=== PATIENT | male | born 1975 | race Caucasian/White ===

== ENCOUNTER → 2020-07-30 08:15 | Outpatient (CLI) | payer OTHER, SELFPAY ==
[2020-07-31 13:17] LABS: COVID19 Sendout Not Detected (Not Detect)
== END ==
PROVIDERS: Visit Provider Nurse Practitioner
DX: Z11.59 Encounter for screening for other viral diseases (principal)
CPT/HCPCS: 87635

== ENCOUNTER 2020-11-07 15:04 | Emergency (ER) | payer OTHER, SELFPAY ==
[2020-11-07 15:05] VITALS: BP 140/94; PULSE 77; RESP 14; TEMP 36.9; O2SAT 98; BMI 27.3
[2020-11-07 15:24] LABS: Add Manual Diff / Slide Review NO; Basophils Absolute Auto 100 /uL (0-100); Basophils Percent Auto 0.6 % (0-2); Eosinophils Absolute Auto 100 /uL (0-450); Eosinophils Percent Auto 0.8 % (2-4); Hematocrit 47.2 % (41-53); Hemoglobin 16.5 g/dL (13.5-17.5); Lymphocytes Absolute Auto 1600 /uL (1100-4500); Mean Corpuscular Hemoglobin 31.2 PG (26-34); Mean Corpuscular Volume 89.1 fL (80-100); Monocytes Absolute Auto 400 /uL (0-900); Monocytes Percent Auto 4.3 % (3-14); Neutrophils Absolute Auto 7700 /uL (1500-7000); Neutrophils Percent Auto 78.3 % (50-75); Platelet Count 140 X10^3/uL (150-400); Red Blood Cell Count 5.29 X10^6/uL (4.5-5.9); Red Cell Distribution Width 13.4 % (11.6-14.8); White Blood Cell Count 9.8 X10^3/uL (4.5-11.0)
[2020-11-07 15:29] LABS: INR 1.2 (0.9-1.3); Prothrombin Time 13.3 SECONDS (10.1-12.7)
[2020-11-07 15:31] LABS: PTT Partial Thromboplastin Tim 33 SECONDS (26.4-36.2)
[2020-11-07 15:33] LABS: Alanine Aminotransferase 55 IU/L (<50); Albumin 4.7 g/dL (3.5-5.0); Albumin Globulin Ratio 1.5 (1.0-2.8); Alkaline Phosphatase 73 U/L (38-126); Aspartate Aminotransferase 40 IU/L (17-59); BUN Creatinine Ratio 23.3 (6-22); Bilirubin Total 0.7 mg/dL (0.2-1.3); Blood Urea Nitrogen 14 mg/dL (9-20); Calcium 9.4 mg/dL (8.4-10.2); Carbon Dioxide 26 mmol/L (22-32); Chloride 104 mmol/L (98-107); Estimated Glomerular Filt Rate > 60.0 mL/min (>60); Globulin 3.1 g/dL (1.7-4.1); Glucose 94 mg/dL (70-100); HEMOLYSIS < 15 (0-50); Lipase 31 U/L (23-300); Potassium 3.8 mmol/L (3.4-5.1); Sodium 137 mmol/L (137-145); Total Protein 7.8 g/dL (6.3-8.2)
[2020-11-07 16:22] VITALS: PULSE 79; O2SAT 96
[2020-11-07 16:30] VITALS: BP 127/85; PULSE 63; O2SAT 97
--- NOTE | 2020-11-07 16:31 | ED.ABDPAIN ---
HPI - Abdominal Pain General Chief Complaint: Abdominal Pain Stated Complaint: lower left abd pain Time Seen by Provider: 11/07/20 15:08 Source: patient Mode of arrival: Ambulatory Limitations: no limitations History of Present Illness HPI narrative: This is a 45 year male comes to the emergency department with complaint of left lower quadrant pain that started in the last 12 hours. Patient states started about 9:00 a.m. this it has been waxing and waning in intensity but has been constant and slowly increasing in intensity. Patient states does not radiate to his back, does not radiate to his testicle or elsewhere. He denies any fevers, no chills, no nausea or vomiting, no chest pain or shortness of breath, no cold cough or congestive symptoms. He denies any frequency, urgency or dysuria he does have some nocturia slowly worsening over the last few years. Patient has had normal bowel movements with no melena or hematochezia. He denies any other medical issues. He has upper dentures but no other surgeries. No allergies to medications, no tobacco, occasional alcohol, no illicit. His primary care is at the [facility]. Related Data Home Medications Medication Instructions Recorded Confirmed fluticasone propionate 50 1 spray NASAL DAILY PRN 06/15/20 08/09/20 mcg/actuation nasal spray,suspension loratadine 10 mg tablet 10 mg PO DAILY PRN 06/15/20 08/09/20 Previous Rx's Medication Instructions Recorded amoxicillin-pot clavulanate 1 tab PO BID #20 tab 11/07/20 [Augmentin] Allergies Allergy/AdvReac Type Severity Reaction Status Date / Time No Known Drug Allergies Allergy Verified 11/07/20 15:10 Review of Systems Review of Systems ROS Unobtainable: All systems reviewed & are unremarkable except as noted in HPI and below Patient History Medical History Chronic allergic rhinitis Fatigue Insomnia Obstructive sleep apnea Snoring Family History Father Loud snoring Obesity Hypertension Heart disease Alcohol abuse Mother Depression Family/Other Loud snoring Sleep apnea Restless leg Hypertension Anxiety Alcohol abuse Social History Smoking Status: Never smoker Smoking Status: Never smoker alcohol intake frequency: holidays/special occasions only Substance Use Type: does not use Exam Narrative Exam Narrative: GENERAL: Alert and oriented x three, well-nourished male in mild distress. HEENT: Head normocephalic, atraumatic, EOMI, pupils reactive, face symmetric, moist mucous membranes NECK: Supple, full range of motion CARDIOVASCULAR: Regular rate and rhythm without murmurs, rubs or gallops. RESPIRATORY: Breath sounds equal bilaterally, no wheezes rales or rhonchi. ABDOMEN: Soft, positive for left lower quadrant tenderness. Normoactive bowel sounds all 4 quadrants. No guarding or rebound, rigidity, no mass, nondistended. No bruit or pulsatile mass. : No CVA tenderness EXTREMITIES: Normal range of motion, no clubbing or edema. Neurovascularly intact NEUROLOGICAL: Cranial nerves II through XII grossly intact. Moving all extremities SKIN: Warm, dry, no petechiae, no rashes or lesions. Initial Vital Signs Initial Vital Signs: Vital Signs Temperature 98.5 F 11/07/20 15:05 Pulse Rate 77 11/07/20 15:05 Respiratory Rate 14 11/07/20 15:05 Blood Pressure 140/94 H 11/07/20 15:05 Pulse Oximetry 98 11/07/20 15:05 Course Orders Ordered: Discontinued Medications Amoxicillin/Clavulanate Potassium (Amoxicillin/Clav 875/125 Mg) 1 tab PO NOW ONE Stop: 11/07/20 17:29 Last Admin: 11/07/20 17:52 Dose: 1 tab Documented by: KELIN Sodium Chloride (Normal Saline 0.9%) 1,000 mls @ 1,000 mls/hr IV BOLUS ONE Stop: 11/07/20 17:37 Last Admin: 11/07/20 17:22 Dose: 1,000 mls/hr Documented by: KELIN Ketorolac Tromethamine (Ketorolac 60 Mg/2 Ml Vial) 15 mg IV NOW ONE Stop: 11/07/20 16:39 Last Admin: 11/07/20 17:23 Dose: 15 mg Documented by: KELIN Reevaluation(s) Reevaluation #1: Patient recontacted via phone 11/08/20. Patient updated regarding possible lung nodule that was noted on the CT with recommendation for follow-up in 6-12 months repeat imaging. Patient states he has a follow-up appointment today with his primary care and will let them know so that they can facilitate follow up. Patient states he still has a little bit of pain. He has picked up his prescription for antibiotics this morning and is planning on taking it after he eats. All questions were answered. Vital Signs Vital signs: Vital Signs - 8 hr 11/07/20 15:05 11/07/20 16:22 11/07/20 16:30 Temperature 98.5 F Pulse Rate 77 79 63 Respiratory Rate 14 Blood Pressure 140/94 H 127/85 Pulse Oximetry 98 96 97 11/07/20 17:13 11/07/20 17:26 11/07/20 17:30 Temperature Pulse Rate 72 69 78 Respiratory Rate Blood Pressure 123/89 121/89 Pulse Oximetry 99 99 98 MDM - Abdominal Pain Lab Data Attestation: I reviewed the patient's lab results. Result diagrams: 11/07/20 15:10 11/07/20 15:10 Labs: Lab Results 11/07/20 11/07/20 11/07/20 Range/Units 15:10 15:10 15:10 WBC 9.8 (4.5-11.0) X10^3/uL RBC 5.29 (4.5-5.9) X10^6/uL Hgb 16.5 (13.5-17.5) g/dL Hct 47.2 (41-53) % MCV 89.1 (80-100) fL MCH 31.2 (26-34) PG MCHC 35.0 (30-36) % RDW 13.4 (11.6-14.8) % Plt Count 140 L (150-400) X10^3/uL Neut % (Auto) 78.3 H (50-75) % Lymph % (Auto) 16.0 L (25-40) % Wright % (Auto) 4.3 (3-14) % Eos % (Auto) 0.8 L (2-4) % Baso % (Auto) 0.6 (0-2) % Neut # (Auto) 7700 H (5545-1886) /uL Lymph # (Auto) 1600 (0643-6585) /uL Wright # (Auto) 400 (0-900) /uL Eos # (Auto) 100 (0-450) /uL Baso # (Auto) 100 (0-100) /uL PT 13.3 H (10.1-12.7) SECONDS INR 1.2 (0.9-1.3) APTT 33 (26.4-36.2) SECONDS Sodium 137 (137-145) mmol/L Potassium 3.8 (3.4-5.1) mmol/L Chloride 104 (98-107) mmol/L Carbon Dioxide 26 (22-32) mmol/L BUN 14 (9-20) mg/dL Creatinine 0.60 L (0.66-1.25) mg/dL Estimated GFR > 60.0 (>60) mL/min BUN/Creatinine Ratio 23.3 H (6-22) Glucose 94 (70-100) mg/dL Calcium 9.4 (8.4-10.2) mg/dL Total Bilirubin 0.7 (0.2-1.3) mg/dL AST 40 (17-59) IU/L ALT 55 H (<50) IU/L Alkaline Phosphatase 73 (38-126) U/L Total Protein 7.8 (6.3-8.2) g/dL Albumin 4.7 (3.5-5.0) g/dL Globulin 3.1 (1.7-4.1) g/dL Albumin/Globulin Ratio 1.5 (1.0-2.8) Lipase 31 (23-300) U/L Point of care testing: Urine Dip Bedside Urine Glucose Negative Bedside Urine Bilirubin - Negative Bedside Urine Ketone - Negative Urine Specific Portia 1.01 Bedside Urine Occult Blood - Negative Bedside Urine pH 6 Bedside Urine Protein - Negative Bedside Urine Urobilinogen - Negative Bedside Urine Nitrite - Negative Bedside Urine Leukocytes - Negative Esterase Imaging Data CT scan - abdomen/pelvis: Radiologist's Impression: Jersey Bertrandn 45 M 1975 [address] [id number] Scan ReportSigned Patient: Jersey BertrandYfnR#: [id number]: 1975Acct:[id number]/Sex: 45 / MDate of Service: 11/07/20Loc: EDAccession Number: [id number] Procedure: CT abdomen pelvis w con Ordering Provider: Sabrina Rachel D.O. PROCEDURE: CT ABDOMEN PELVIS W CON INDICATIONS: LLQ pain, suspect diverticulitis TECHNIQUE: After the administration of intravenous contrast, 5 mm thick sections acquired from the diaphragm to the symphysis. 5 mm coronal and sagittal reformats were acquired. For radiation dose reduction, the following was used: automated exposure control, adjustment of mA and/or kV according to patient size. COMPARISON: None. FINDINGS: Image quality: Excellent. ABDOMEN: Lung bases: Possible 6 x 3 mm right lower lobe pulmonary nodule seen on image 2, series 3. Heart size is normal. Solid organs: Liver is normal in size and enhancement. A few tiny subcentimeter hepatic hypodensities are too small to accurately characterize but likely represent hepatic cysts or hemangiomas. Gallbladder is unremarkable. Biliary system is non dilated. Pancreas enhances normally. Spleen is homogeneous enhancement. Mild splenomegaly. No adrenal nodules. Kidneys demonstrate normal size and enhancement, without hydronephrosis. Visualized course and caliber of the bilateral ureters are within normal limits. Peritoneum and bowel: Bowel loops demonstrate normal wall thickness and caliber. No free fluid or air. Scattered colonic diverticula without acute inflammatory changes surrounding diverticula in the proximal sigmoid colon. No evidence for perforation or abscess formation. Appendix is normal. No evidence for bowel obstruction. Nodes and vessels: No retroperitoneal or mesenteric adenopathy by size criteria. Aorta and inferior vena cava are normal in size. Miscellaneous: Very small fat containing umbilical hernia without acute inflammation. PELVIS: Genitourinary: Bladder wall thickness is normal. Miscellaneous: No inguinal hernias. No pelvic adenopathy. Bones: No suspicious bony lesions. No acute vertebral body compression fractures. IMPRESSION: 1. Scattered colonic diverticulosis with acute diverticulitis involving a short segment of the proximal sigmoid colon. No evidence for perforation or abscess formation. 2. Normal appendix. 3. Possible 6 x 3 mm right lung base nodule. Recommend follow-up chest CT in 6-12 months to document stability versus resolution. 4. Mild splenomegaly. Dictated by: Darvin Gómez M.D. on 11/07/2020 at 17:07 Approved by: Darvin Gómez M.D. on 11/07/2020 at 17:14 ECG Data Attestation: I personally reviewed and interpreted this ECG as follows: Interpretation: Sinus rhythm, rate of 72 MD 150 QRS 86 and QTC 416. MDM Narrative Medical decision making narrative: Patient has symptoms consistent with diverticulitis but has never had in the past. CT is consistent. No signs of sepsis started on Augmentin. Patient has meloxicam at home and plan to do this in addition to Tylenol. Return precautions discussed. Discharge Plan Departure Patient Disposition: Home Clinical Impression: Diverticulitis Instructions: DI for Diverticulitis Activity Restrictions/Additional Instructions: Follow-up with your physician in the next week for recheck. Your imaging today does show diverticulitis. Take antibiotics until completely gone. You may take Tylenol up to a 1000 mg every 8 hours. You may take this with other NSAIDs such as meloxicam or ibuprofen or naproxen. Return to the emergency department for fevers, worsening abdominal pain, back or flank pain, persistent vomiting, black or bloody stools, lightheadedness or passing out or other new or concerning symptoms. Prescriptions: New amoxicillin-pot clavulanate [Augmentin] 875-125 mg tablet 1 tab PO BID Qty: 20 RF: 0 No Action fluticasone propionate [Flonase Allergy Relief] 50 mcg/actuation spray,suspension 1 spray NASAL DAILY PRN (Reason: allergy symptoms) RF: 0 loratadine [Claritin] 10 mg tablet 10 mg PO DAILY PRN (Reason: allergy symptoms) RF: 0
--- NOTE | 2020-11-07 16:38 | DI.CT.S_ITS ---
PROCEDURE: CT ABDOMEN PELVIS W CON INDICATIONS: LLQ pain, suspect diverticulitis TECHNIQUE: After the administration of intravenous contrast, 5 mm thick sections acquired from the diaphragm to the symphysis. 5 mm coronal and sagittal reformats were acquired. For radiation dose reduction, the following was used: automated exposure control, adjustment of mA and/or kV according to patient size. COMPARISON: None. FINDINGS: Image quality: Excellent. ABDOMEN: Lung bases: Possible 6 x 3 mm right lower lobe pulmonary nodule seen on image 2, series 3. Heart size is normal. Solid organs: Liver is normal in size and enhancement. A few tiny subcentimeter hepatic hypodensities are too small to accurately characterize but likely represent hepatic cysts or hemangiomas. Gallbladder is unremarkable. Biliary system is non dilated. Pancreas enhances normally. Spleen is homogeneous enhancement. Mild splenomegaly. No adrenal nodules. Kidneys demonstrate normal size and enhancement, without hydronephrosis. Visualized course and caliber of the bilateral ureters are within normal limits. Peritoneum and bowel: Bowel loops demonstrate normal wall thickness and caliber. No free fluid or air. Scattered colonic diverticula without acute inflammatory changes surrounding diverticula in the proximal sigmoid colon. No evidence for perforation or abscess formation. Appendix is normal. No evidence for bowel obstruction. Nodes and vessels: No retroperitoneal or mesenteric adenopathy by size criteria. Aorta and inferior vena cava are normal in size. Miscellaneous: Very small fat containing umbilical hernia without acute inflammation. PELVIS: Genitourinary: Bladder wall thickness is normal. Miscellaneous: No inguinal hernias. No pelvic adenopathy. Bones: No suspicious bony lesions. No acute vertebral body compression fractures. IMPRESSION: 1. Scattered colonic diverticulosis with acute diverticulitis involving a short segment of the proximal sigmoid colon. No evidence for perforation or abscess formation. 2. Normal appendix. 3. Possible 6 x 3 mm right lung base nodule. Recommend follow-up chest CT in 6-12 months to document stability versus resolution. 4. Mild splenomegaly. Dictated by: Darvin Gómez M.D. on 11/07/2020 at 17:07 Approved by: Darvin Gómez M.D. on 11/07/2020 at 17:14
[2020-11-07 17:13] VITALS: PULSE 72; O2SAT 99
[2020-11-07] MEDS: SODIUM CHLORIDE 0.9% 1,000 ML 1000 ML IV (17:22)
[2020-11-07] MEDS: KETOROLAC 60 MG/2 ML VIAL 15 MG IV (17:23)
[2020-11-07 17:26] VITALS: BP 123/89; PULSE 69; O2SAT 99
[2020-11-07 17:30] VITALS: BP 121/89; PULSE 78; O2SAT 98
[2020-11-07] MEDS: AMOXICILLIN/CLAV 875/125 MG 1 TAB PO (17:52)
== END 2020-11-07 17:56 | disposition home or self-care (01) ==
PROVIDERS: Emergency Provider Emergency Medicine
DX: K57.92 Diverticulitis of intestine, part unspecified, without perforation or abscess without bleeding (principal)
CPT/HCPCS: 36415; 74177; 80053; 81003; 83690; 85025; 85610; 85730; 93005; 93010; 96374; 99283; 99284; J1885